=== PATIENT | male | born 1960 | race Caucasian/White ===

== ENCOUNTER → 2024-11-08 08:05 | Outpatient (CLI) | payer OTHER, SELFPAY ==
--- NOTE | 2024-11-08 08:11 | DI.NM.S_ITS ---
PROCEDURE: NM EXERCISE TREADMILL NON NUC COMPARISON: None. INDICATIONS: Shortness of breath FINDINGS: Rest ECG sinus rhythm 68 bpm. Jabari protocol 10:24, max HR 130 bpm (84% peak predicted), peak BP 178/84, 12.8 METS, TRISH -29%. Exercise ECG sinus tachycardia, no ST changes. Occasional PVCs. The patient did not report chest pain. IMPRESSION: Low risk study. No evidence of exercise induced ischemia on ECG. Normal hemodynamic response. Very good exercise capacity. Dictated by: Kim Kingston D.O. on 11/08/2024 at 12:58 Approved by: Kim Kingston D.O. on 11/08/2024 at 16:05
--- NOTE | 2024-11-08 08:11 | DI.RAD.S_ITS ---
PROCEDURE: XR CHEST 2V INDICATIONS: Shortness of breath TECHNIQUE: 2 views of the chest were acquired. COMPARISON: None. FINDINGS: Surgical changes and devices: None. Lungs and pleura: Lungs are clear. No pleural effusions or pneumothorax. Mediastinum: Mediastinal contours are normal. Heart size is normal. Bones and chest wall: No suspicious bony abnormalities. Soft tissues appear unremarkable. IMPRESSION: No acute cardiopulmonary abnormality is seen. Dictated by: Ktahia Gutierrez MD, PhD on 11/08/2024 at 9:39 Approved by: Kathia Gutierrez MD, PhD on 11/08/2024 at 9:39
== END ==
PROVIDERS: Referring Provider Internal Medicine Cardiovascular Disease; Visit Provider Internal Medicine Cardiovascular Disease
DX: R42 Dizziness and giddiness (principal); R06.02 Shortness of breath; R06.09 Other forms of dyspnea
CPT/HCPCS: 71046; 93017